=== PATIENT | male | born 1970 | race African-American/Black ===

== ENCOUNTER 2017-06-26 07:23 | Emergency (ER) | payer MEDICAID, MEDICARE ==
[2017-06-26] MEDS ORDERED: Ondansetron HCl/PF 4 MG/2 ML Vial ONE (07:37)
[2017-06-26] MEDS ORDERED: Morphine 4 MG/ML Carpuject ONE (07:37)
[2017-06-26 08:00] LABS: #Basophils 0.1 thou/uL (0.0-0.2); #Eosinphils 0.1 thou/uL (0.0-0.7); #Lymphocytes 3.2 thou/uL (1.20-3.40); #Monocytes 1.1 thou/uL (0.11-0.59); #Neutrophils 6.5 thou/uL (1.40-6.50); %Basophils 0.6 % (0.0-1.0); %Lymphocytes 29.1 % (21.0-51.0); %Monocytes 10.4 % (0.0-10.0); %Neutrophils 58.9 % (42.0-75.0); Hemoglobin 14.6 g/dL (14.0-18.0); Mean Corpuscular HGB CONC 32.3 g/dL (32.0-36.0); Mean Corpuscular Hemoglobin 28.8 pg (27.0-31.0); Mean Corpuscular Volume 89.2 fl (80.0-94.0); Mean Platelet Volume 6.9 fL (7.4-10.4); Platelet Count 404 thou/uL (130-400); RBC Distribution Width 12.7 % (11.5-14.5); Red Blood Cell (RBC) Count 5.06 mill/uL (4.70-6.10)
[2017-06-26 08:23] LABS: ALT (SGPT) 8 U/L (8-55); AST (SGOT) 10 U/L (5-34); Albumin 4.2 g/dL (3.5-5.0); Alkaline Phosphatase 61 U/L (40-150); Anion Gap 16 mmol/L (10-20); BUN (Urea Nitrogen) 11 mg/dL (8.9-20.6); Bilirubin, Total 0.4 mg/dL (0.2-1.2); Calc. Creatinine Clearance 0 mL/min (70-130); Carbon Dioxide 19 mmol/L (22-29); Chloride 106 mmol/L (98-107); Estimated GFR-MDRD Greater than 90; Globulin 3.5 g/dL (2.4-3.5); Glucose 108 mg/dL (70-105); Lipase 21 U/L (8-78); Potassium 4.1 mmol/L (3.5-5.1); Protein, Total 7.7 g/dL (6.0-8.3); Sodium 137 mmol/L (136-145)
--- NOTE | 2017-06-26 08:38 | CT ---
CT OF THE ABDOMEN AND PELVIS WITHOUT IV CONTRAST: INDICATION: Right-sided flank pain with stenting upon urination. COMPARISON: None. FINDINGS: There is mild right basilar atelectasis. Unopacified liver, pancreas, adrenal glands, and spleen appear within normal limits. No hydronephros is was evident. No definite renal or ureteral calculus is evident. There are mild vascular calcific ations involving the distal abdominal aorta and common iliac arteries. The prostate is mildly enlarg ed at 5 cm. Unopacified bladder is unremarkable. The visualized unopacified large bowel demonstrate a few scattered diverticula. There is a focal area of mild wall thickening and pericolonic inflamma tory stranding involving the descending colon on image 27 of series 2. There is a mild amount of ret ained stool within the colon. There is a normal appendix in the right lower quadrant of the abdomen. No definite acute osseous abnormality is evident. IMPRESSION: 1. Suggestion of some mild wall thickening and pericolonic inflammatory stranding involving a focal area of descending colon may reflect an area of diverticulitis. Recommend correlation with the clini carol exam. 2. No renal or ureteral calculus evident. 3. Moderate amount of retained stool within the colon. 4. Atherosclerotic calcification of the distal abdominal aorta and common iliac vasculature. POS: [facility]
[2017-06-26 08:42] LABS: Bilirubin Negative (Negative); Blood, Urine Negative (Negative); Clarity CLOUDY (Clear); Glucose, Urine (Dipstick) Negative (Negative); Leukocyte Moderate (Negative); Nitrite Negative (Negative); Protein, Urine (Dipstick) Negative (Neg-Trace); Specific Gravity, Urine 1.027 (1.002-1.036)
[2017-06-26 08:45] LABS: Bacteria/HPF None Seen HPF (None Seen); Hyaline Casts/LPF 4-6 HYALINE CAST LPF (0-3 Hyaline); RBC/HPF 0-3 HPF (0-3); WBC/HPF 21-50 HPF (0-3)
== END 2017-06-26 10:08 | disposition home or self-care (01) ==
LOC: ERS 07:23
DX: K57.92 Diverticulitis of intestine, part unspecified, without perforation or abscess without bleeding (principal); J45.909 Unspecified asthma, uncomplicated; F32.9 Major depressive disorder, single episode, unspecified; Z87.891 Personal history of nicotine dependence
CPT/HCPCS: 36415; 74176; 80053; 81003; 81015; 83690; 85025; 87086; 96374; 96375; J2270; J2405

== ENCOUNTER 2017-06-30 04:47 | Emergency (ER) | payer MEDICARE, OTHER ==
[2017-06-30 05:51] LABS: #Eosinphils 0.1 thou/uL (0.0-0.7); #Lymphocytes 3.7 thou/uL (1.20-3.40); #Neutrophils 4.2 thou/uL (1.40-6.50); %Basophils 0.5 % (0.0-1.0); %Lymphocytes 41.2 % (21.0-51.0); %Monocytes 10.6 % (0.0-10.0); %Neutrophils 46.7 % (42.0-75.0); Hemoglobin 13.2 g/dL (14.0-18.0); Mean Corpuscular HGB CONC 32.9 g/dL (32.0-36.0); Mean Corpuscular Volume 88.3 fl (80.0-94.0); Mean Platelet Volume 7.1 fL (7.4-10.4); Platelet Count 301 thou/uL (130-400); RBC Distribution Width 12.4 % (11.5-14.5); Red Blood Cell (RBC) Count 4.56 mill/uL (4.70-6.10)
[2017-06-30] MEDS ORDERED: Ketorolac Tromethamine 60 MG/2 ML VIAL ONE (06:02)
[2017-06-30 06:05] LABS: ALT (SGPT) 8 U/L (8-55); AST (SGOT) 9 U/L (5-34); Albumin 3.7 g/dL (3.5-5.0); Alkaline Phosphatase 51 U/L (40-150); Anion Gap 12 mmol/L (10-20); BUN (Urea Nitrogen) 11 mg/dL (8.9-20.6); Bilirubin, Total 0.4 mg/dL (0.2-1.2); Calc. Creatinine Clearance 0 mL/min (70-130); Calcium 9.6 mg/dL (7.8-10.44); Carbon Dioxide 23 mmol/L (22-29); Chloride 106 mmol/L (98-107); Estimated GFR-MDRD Greater than 90; Globulin 3.4 g/dL (2.4-3.5); Glucose 108 mg/dL (70-105); Potassium 3.8 mmol/L (3.5-5.1); Protein, Total 7.1 g/dL (6.0-8.3); Sodium 137 mmol/L (136-145)
--- NOTE | 2017-06-30 07:58 | RAD ---
RIGHT SHOULDER 3 VIEWS: HISTORY: Right shoulder pain. FINDINGS: There are postop changes of rotator cuff repair and distal clavicular resection. No acute fracture o r dislocation or bony destruction is seen. POS: [facility]
--- NOTE | 2017-07-05 13:47 | EKG ---
Test Reason : Blood Pressure : / mmHG Vent. Rate : 104 BPM Atrial Rate : 104 BPM P-R Int : 156 ms QRS Dur : 066 ms QT Int : 334 ms P-R-T Axes : 062 067 046 degrees QTc Int : 439 ms Sinus tachycardia Voltage criteria for left ventricular hypertrophy Cannot rule out Septal infarct , age undetermined Abnormal ECG Confirmed by NATACHA HYMAN ([id number]), brands editor CRISTINA MACKEY ([id number]) on 07/05/2017 1:46:56 PM Referred By: BOOGIE Confirmed By:NATACHA HYMAN
== END 2017-06-30 06:39 | disposition home or self-care (01) ==
LOC: ERS 04:47
DX: M25.511 Pain in right shoulder (principal); G89.18 Other acute postprocedural pain; J45.909 Unspecified asthma, uncomplicated; F32.9 Major depressive disorder, single episode, unspecified; F17.210 Nicotine dependence, cigarettes, uncomplicated
CPT/HCPCS: 36415; 80053; 83605; 85025; 85652; 86140; 93005; 96372; J1885

== ENCOUNTER 2017-08-16 12:21 | Emergency (ER) | payer MEDICARE ==
[2017-08-16] MEDS ORDERED: Lidocaine 1% w/Epinephrine 1:100K 20 ML VIAL ONE (12:50)
== END 2017-08-16 13:17 | disposition home or self-care (01) ==
LOC: ERS 12:21
DX: Z45.2 Encounter for adjustment and management of vascular access device (principal); J45.909 Unspecified asthma, uncomplicated; F32.9 Major depressive disorder, single episode, unspecified; F17.210 Nicotine dependence, cigarettes, uncomplicated
CPT/HCPCS: 87071; 99283; J2001

== ENCOUNTER 2017-09-12 09:56 | Emergency (ER) | payer MEDICARE ==
[2017-09-12 10:42] LABS: Bilirubin Negative (Negative); Blood, Urine Negative (Negative); Glucose, Urine (Dipstick) Negative (Negative); Leukocyte Negative (Negative); Nitrite Negative (Negative); Protein, Urine (Dipstick) Negative (Neg-Trace); Urobilinogen 0.2 mg/dL (0.2-1.0); pH, Urine 6.5 (5.0-9.0)
[2017-09-12 10:43] LABS: Clarity CLEAR (Clear)
[2017-09-14 00:50] LABS: Chlamydia by PCR Not Detected (NotDetected); GC by PCR Not Detected (NotDetected)
== END 2017-09-12 11:39 | disposition home or self-care (01) ==
LOC: ERS 09:56
DX: N48.1 Balanitis (principal); I10 Essential (primary) hypertension; J45.909 Unspecified asthma, uncomplicated; F32.9 Major depressive disorder, single episode, unspecified; F17.210 Nicotine dependence, cigarettes, uncomplicated
CPT/HCPCS: 81003; 87491; 87591; 99283

== ENCOUNTER 2017-10-02 07:30 | Emergency (ER) | payer MEDICARE, OTHER ==
[2017-10-02] MEDS ORDERED: Fentanyl 100 MCG/2 ML VIAL ONE (07:38)
[2017-10-02 08:15] LABS: #Lymphocytes 1.2 thou/uL (1.20-3.40); #Monocytes 0.7 thou/uL (0.11-0.59); #Neutrophils 6.5 thou/uL (1.40-6.50); %Basophils 0.3 % (0.0-1.0); %Eosinophils 0.3 % (0.0-10.0); %Lymphocytes 14.1 % (21.0-51.0); %Monocytes 8.1 % (0.0-10.0); %Neutrophils 77.2 % (42.0-75.0); Hemoglobin 14.2 g/dL (14.0-18.0); Mean Corpuscular Hemoglobin 29.1 pg (27.0-31.0); Mean Corpuscular Volume 88.1 fl (80.0-94.0); Mean Platelet Volume 7.7 fL (7.4-10.4); Platelet Count 187 thou/uL (130-400); Red Blood Cell (RBC) Count 4.89 mill/uL (4.70-6.10); White Blood Cell (WBC) Count 8.4 thou/uL (4.8-10.8)
--- NOTE | 2017-10-02 08:27 | RAD ---
RADIOGRAPH CHEST 1 VIEW: HISTORY: A 47-year-old male with sepsis and fever. FINDINGS: There are no air space densities, pulmonary edema, pneumothorax, or cardiomegaly. The lateral costop hrenic angles are sharp. IMPRESSION: No acute cardiopulmonary findings. jn [] POS: [facility]
[2017-10-02] MEDS ORDERED: Ketorolac Tromethamine 30 MG/ML VIAL ONE (08:28)
[2017-10-02 08:31] LABS: ALT (SGPT) 14 U/L (8-55); AST (SGOT) 18 U/L (5-34); Alkaline Phosphatase 61 U/L (40-150); Anion Gap 12 mmol/L (10-20); BUN (Urea Nitrogen) 8 mg/dL (8.9-20.6); Bilirubin, Total 0.5 mg/dL (0.2-1.2); CK (CPK) 137 U/L (30-200); Calc. Creatinine Clearance 0 mL/min (70-130); Calcium 9.5 mg/dL (7.8-10.44); Carbon Dioxide 22 mmol/L (22-29); Chloride 102 mmol/L (98-107); Estimated GFR-MDRD Greater than 90; Globulin 3.1 g/dL (2.4-3.5); Glucose 118 mg/dL (70-105); Potassium 3.4 mmol/L (3.5-5.1); Protein, Total 7.1 g/dL (6.0-8.3); Sodium 133 mmol/L (136-145)
[2017-10-02] MEDS ORDERED: Piperacillin/Tazobactam 4.5 GM VIAL ONE (09:46)
--- NOTE | 2017-10-02 10:29 | RAD ---
RIGHT SHOULDER 3 VIEWS: HISTORY: Sepsis and shoulder pain. FINDINGS: Multiple surgical anchors are seen which appear to be from a previous rotator cuff tear and possibly a tenodesis. There are arthritic changes of the glenohumeral joint space. No bony destructive morales e is seen. IMPRESSION: Postoperative changes of the shoulder. No definitive evidence for osteomyelitis. Some deformity to the greater tuberosity of the humerus is probably on the basis of postoperative change. Findings ganesh ear similar to a 06/30/17 study. POS: [facility]
[2017-10-02] MEDS ORDERED: Lidocaine 1% (PF) 30 ML VIAL ONE (10:35)
[2017-10-02 13:32] LABS: BF Color Yellow; Body Fluid Source SYNOVIAL FLUID; Clarity Hazy (Clear); Tube # EDTA
[2017-10-02 13:33] LABS: BF RBC Count - Manual 2100 /cumm; RBC Background Count 0.003; WBC/NonHematic-Auto 318 /cumm
[2017-10-02 14:10] LABS: BF Segmented Neutrophils 48 %; Cell Count Non Hematic 35 %; Lymphocytes 16 %
== END 2017-10-02 13:03 | disposition home or self-care (01) ==
LOC: ERS 07:30
DX: M25.511 Pain in right shoulder (principal); I10 Essential (primary) hypertension; J45.909 Unspecified asthma, uncomplicated; F32.9 Major depressive disorder, single episode, unspecified; F17.210 Nicotine dependence, cigarettes, uncomplicated; Z79.899 Other long term (current) drug therapy
CPT/HCPCS: 20610; 71045; 80053; 82550; 83605; 85025; 85060; 85652; 86140; 87040; 87070; 87205; 89051; 93005; 96361; 96365; 96367; 96375; J1885; J2001; J2543; J3010; J3370

== ENCOUNTER 2018-08-15 12:27 | Emergency (ER) | payer MEDICARE, OTHER ==
[2018-08-15] MEDS ORDERED: Bupivacaine 0.5% 10 ML VIAL ONE (12:47)
== END 2018-08-15 13:06 | disposition home or self-care (01) ==
LOC: SCSER 12:27
DX: K02.9 Dental caries, unspecified (principal); I10 Essential (primary) hypertension; F32.9 Major depressive disorder, single episode, unspecified; F17.210 Nicotine dependence, cigarettes, uncomplicated; Z79.899 Other long term (current) drug therapy
CPT/HCPCS: 64400; J3490

== ENCOUNTER 2019-03-30 10:59 | Emergency (ER) | payer MEDICARE, OTHER ==
[2019-03-30] MEDS ORDERED: Ketorolac Tromethamine 60 MG/2 ML VIAL ONE (11:41)
[2019-03-30] MEDS ORDERED: Dexamethasone 10 MG/ML VIAL ONE (11:41)
--- NOTE | 2019-03-30 11:44 | RAD ---
RIGHT SHOULDER THREE VIEWS: HISTORY: Right shoulder pain. COMPARISON: 10/02/2017 FINDINGS: Postop changes of rotator cuff repair are again seen. There is a new bony density in the acromiohumer al space which is likely due to avulsion from the trough of the right proximal humerus and highly mary picious for a rotator cuff tear. Further evaluation with MRI would be helpful. POS: [facility]
== END 2019-03-30 12:00 | disposition home or self-care (01) ==
LOC: ERS 10:59
DX: M25.511 Pain in right shoulder (principal); G89.29 Other chronic pain; I10 Essential (primary) hypertension; F32.9 Major depressive disorder, single episode, unspecified; F17.210 Nicotine dependence, cigarettes, uncomplicated; Z79.899 Other long term (current) drug therapy
CPT/HCPCS: 96372; J1100; J1885

== ENCOUNTER 2019-05-08 13:49 | Emergency (ER) | payer MEDICARE, OTHER ==
[2019-05-08] MEDS ORDERED: Ibuprofen 800 MG TAB ONE (14:03)
[2019-05-08] MEDS ORDERED: Acetaminophen 500 MG TAB ONE (14:03)
== END 2019-05-08 14:55 | disposition home or self-care (01) ==
LOC: ERS 13:49
DX: K04.7 Periapical abscess without sinus (principal); I10 Essential (primary) hypertension; E78.5 Hyperlipidemia, unspecified; F17.210 Nicotine dependence, cigarettes, uncomplicated; Z79.899 Other long term (current) drug therapy
CPT/HCPCS: 87804; 99283

== ENCOUNTER 2019-06-10 13:38 | Emergency (ER) | payer OTHER ==
[2019-06-10] MEDS ORDERED: Ketorolac Tromethamine 30 MG/ML VIAL ONE (14:34)
== END 2019-06-10 15:02 | disposition home or self-care (01) ==
LOC: ERS 13:38
DX: M54.5 Low back pain (principal); E78.5 Hyperlipidemia, unspecified; I10 Essential (primary) hypertension; F32.9 Major depressive disorder, single episode, unspecified; F17.210 Nicotine dependence, cigarettes, uncomplicated; Z79.899 Other long term (current) drug therapy
CPT/HCPCS: 96372; 99283; J1885

== ENCOUNTER 2019-07-08 12:16 | Emergency (ER) | payer OTHER ==
--- NOTE | 2019-07-08 13:30 | RAD ---
RIGHT SHOULDER THREE VIEWS: HISTORY: Right shoulder pain. COMPARISON: 03/30/2019 FINDINGS: Postop changes of rotator cuff repair are again seen. There is redemonstration of the bony density i n the acromiohumeral space which is likely due to avulsion from the trough of the right proximal humerus and highly suspicious for a rotator cuff tear. No acute fracture or dislocation is identified.
== END 2019-07-08 15:57 | disposition left against medical advice (07) ==
LOC: ERS 12:16
DX: Z53.21 Procedure and treatment not carried out due to patient leaving prior to being seen by health care provider (principal)

== ENCOUNTER 2019-10-02 12:34 | Emergency (ER) | payer MEDICARE, OTHER ==
[2019-10-02] MEDS ORDERED: Acetaminophen 500 MG TAB ONE (13:02)
[2019-10-02] MEDS ORDERED: Bupivacaine 0.25% 10 ML VIAL ONE (13:39)
[2019-10-02] MEDS ORDERED: traMADol HCl 50 MG TAB ONE (13:44)
== END 2019-10-02 14:00 | disposition home or self-care (01) ==
LOC: ERS 12:34
DX: K03.81 Cracked tooth (principal); K02.9 Dental caries, unspecified; F17.210 Nicotine dependence, cigarettes, uncomplicated
CPT/HCPCS: 64400; S0020

== ENCOUNTER 2019-11-07 13:46 | Emergency (ER) | payer MEDICARE, OTHER ==
[2019-11-08 14:04] LABS: SARS-CoV-2 MS2 Positive; SARS-CoV-2 N Gene Negative; SARS-CoV-2 S Gene Negative; SARS-CoV-2 orf1ab Negative
== END 2019-11-07 14:25 | disposition home or self-care (01) ==
LOC: ERS 13:46
DX: Z20.828 Contact with and (suspected) exposure to other viral communicable diseases (principal)
CPT/HCPCS: 99283; U0003; 87635

== ENCOUNTER 2020-02-24 03:11 | Inpatient (IN) | payer MEDICARE, OTHER ==
[2020-02-24] MEDS ORDERED: Ketorolac Tromethamine 30 MG/ML VIAL ONE (03:42)
[2020-02-24 03:52] LABS: #Eosinphils 0.1 thou/uL (0.0-0.7); #Lymphocytes 2.1 thou/uL (1.20-3.40); #Monocytes 1.1 thou/uL (0.11-0.59); %Basophils 0.1 % (0.0-1.0); %Eosinophils 0.3 % (0.0-10.0); %Lymphocytes 13.7 % (21.0-51.0); %Monocytes 7.2 % (0.0-10.0); %Neutrophils 78.6 % (42.0-75.0); Hemoglobin 15.1 g/dL (14.0-18.0); Mean Corpuscular HGB CONC 33.1 g/dL (32.0-36.0); Mean Corpuscular Hemoglobin 30.2 pg (27.0-31.0); Mean Corpuscular Volume 91.2 fL (78.0-98.0); Mean Platelet Volume 10.3 fL (7.4-10.4); Platelet Count 201 thou/uL (130-400); White Blood Cell (WBC) Count 15.3 thou/uL (4.8-10.8)
[2020-02-24 04:14] LABS: ALT (SGPT) 14 U/L (8-55); AST (SGOT) 18 U/L (5-34); Alkaline Phosphatase 73 U/L (40-110); Anion Gap 17 mmol/L (10-20); BUN (Urea Nitrogen) 12 mg/dL (8.9-20.6); Bilirubin, Total 0.2 mg/dL (0.2-1.2); Calc. Creatinine Clearance 0 mL/min (70-130); Calcium 9.3 mg/dL (7.8-10.44); Carbon Dioxide 17 mmol/L (22-29); Chloride 104 mmol/L (98-107); Estimated GFR-MDRD Greater than 90; Globulin 3.5 g/dL (2.4-3.5); Glucose 106 mg/dL (70-105); Protein, Total 7.5 g/dL (6.0-8.3); Sodium 134 mmol/L (136-145)
[2020-02-24] MEDS ORDERED: Cefepime 2 GM VIAL ONE (04:23)
[2020-02-24] MEDS ORDERED: Vancomycin 1 GM/200 ML BAG ONE (04:24)
[2020-02-24] MEDS ORDERED: Acetaminophen 500 MG TAB ONE (06:08)
[2020-02-24 06:54] LABS: Lactic Acid 0.9 mmol/L (0.5-2.2)
[2020-02-24] MEDS ORDERED: hydrALAZINE 20 MG/ML VIAL SLOW IVP PRN (06:55)
[2020-02-24] MEDS ORDERED: Labetalol HCl 100 MG/20 ML VIAL SLOW IVP PRN (06:55)
[2020-02-24] MEDS ORDERED: Acetaminophen 325 MG TAB PO PRN (06:55)
[2020-02-24] MEDS ORDERED: Morphine 2 MG/ML VIAL SLOW IVP PRN (06:55)
[2020-02-24] MEDS ORDERED: Promethazine HCl 12.5 MG in Sodium Chloride 0.9% 50 ML IVPB PRN (06:55)
[2020-02-24] MEDS ORDERED: HYDROcodone/Acetaminophen 5/325 mg Tablet PO PRN (06:55)
[2020-02-24] MEDS ORDERED: cloNIDine 0.1 MG TAB PO PRN (06:55)
[2020-02-24] MEDS ORDERED: Ondansetron PF 4 MG/2 ML Vial IVP PRN (06:55)
--- NOTE | 2020-02-24 06:59 | PDOC.HHP ---
Hospitalist HPI - History of Present Illness Fever, shoulder pain, jaw pain History of Present Illness: Patient is a 49 year old male with PMH HTN, asthma, shoulder surgeries who presents to ED for R shoulder pain, tooth pain, fever. He reports friday he developed pain in R lower mandible and some pus, he also developed R shoulder pain at that time, reports he has chronic shoulder pain and hisotry of surgeries on R shoulder by Dr Colon. In ED, WBC 15, CRP 13, ESR 55. Exam concerning for R shoulder tenderness and very painful. tachycardia, tachypneic, febrile in ED as well, patinet given sepsis protocol, cultures drawn, given cefepime and vancomycin and admitted for further workup. Hospitalist ROS - Review of Systems Constitutional: reports: fever, chills. denies: sweats, weakness, malaise, other Eyes: denies: pain, vision change, conjunctivae inflammation, eyelid inflammation, redness, other ENT: reports: other (tooth pain). denies: ear pain, ear discharge, nose pain, nose discharge, nose congestion, mouth pain, mouth swelling, throat pain, throat swelling Respiratory: denies: cough, dry, shortness of breath, hemoptysis, SOB with excertion, pleuritic pain, sputum, wheezing, other Cardiovascular: denies: chest pain, palpitations, orthopnea, paroxysmal noc. dyspnea, edema, light headedness, other Gastrointestinal: denies: nausea, vomiting, abdominal pain, diarrhea, constipation, melena, hematochezia, other Genitourinary: denies: dysuria, frequency, incontinence, hematuria, retention, other Musculoskeletal: reports: shoulder pain. denies: neck pain, arm pain, back pain, hand pain, leg pain, foot pain, other Skin: denies: rash, lesions, hina, bruising, other Neurological: denies: weakness, numbness, incoordination, change in speech, confusion, seizures, other All other systems reviewed; all pertinent +/- noted in HPI/Subj Hospitalist History - Past Medical History Other Medical History: asthma htn - Past Surgical History Other Surgical History: shoulder surgeries - Family History Family History: reports: no pertinent history - Exam General Appearance: NAD, awake alert Eye: PERRL, anicteric sclera ENT: normocephalic atraumatic, no oropharyngeal lesions, moist mucosa ENT - other findings: r jaw tenderness Neck: supple, symmetric, no JVD, no thyromegaly, no lymphadenopathy, no carotid bruit Heart: RRR, no murmur, no gallops, no rubs, normal peripheral pulses Heart - other findings: tachycardia Respiratory: CTAB, no wheezes, no rales, no ronchi, normal chest expansion, no tachypnea, normal percussion Gastrointestinal: soft, non-tender, non-distended, normal bowel sounds, no palpable masses, no hepatomegaly, no splenomegaly, no bruit Extremities: no cyanosis, no clubbing, no edema Extremities - other findings: R shoulder tenderness Skin: normal turgor, no lesions, no rashes Neurological: cranial nerve grossly intact, normal sensation to touch, no weakness, no focal deficits, no new deficit Musculoskeletal: normal tone, normal strength, no muscle wasting Musculoskeletal - other findings: R shoulder tenderness, ROM limited by pain Psychiatric: normal affect, normal behavior, A&O x 3 Hospitalist Results - Labs Result Diagrams: 02/24/20 03:40 02/24/20 03:40 Lab results: WBC 15.3 thou/uL (4.8-10.8) H 02/24/20 03:40 Hgb 15.1 g/dL (14.0-18.0) 02/24/20 03:40 Hct 45.5 % (42.0-52.0) 02/24/20 03:40 MCV 91.2 fL (78.0-98.0) 02/24/20 03:40 Plt Count 201 thou/uL (130-400) 02/24/20 03:40 Neutrophils % 78.6 % (42.0-75.0) H 02/24/20 03:40 ESR Westergren 55 mm/hr (Less than 20) 02/24/20 03:33 Sodium 134 mmol/L (136-145) L 02/24/20 03:40 Potassium 4.0 mmol/L (3.5-5.1) 02/24/20 03:40 Chloride 104 mmol/L (98-107) 02/24/20 03:40 Carbon Dioxide 17 mmol/L (22-29) L 02/24/20 03:40 BUN 12 mg/dL (8.9-20.6) 02/24/20 03:40 Creatinine 0.99 mg/dL (0.7-1.3) 02/24/20 03:40 Glucose 106 mg/dL (70-105) H 02/24/20 03:40 Lactic Acid 0.9 mmol/L (0.5-2.2) 02/24/20 06:29 Calcium 9.3 mg/dL (7.8-10.44) 02/24/20 03:40 Total Bilirubin 0.2 mg/dL (0.2-1.2) 02/24/20 03:40 AST 18 U/L (5-34) 02/24/20 03:40 ALT 14 U/L (8-55) 02/24/20 03:40 Alkaline Phosphatase 73 U/L (40-110) 02/24/20 03:40 C-Reactive Protein 12.98 mg/dL (= or < 0.5) H 02/24/20 03:40 Serum Total Protein 7.5 g/dL (6.0-8.3) 02/24/20 03:40 Albumin 4.0 g/dL (3.5-5.0) 02/24/20 03:40 Additional comment: VITAL SIGNS Kayleigh Feb 24, 2020 06:42 OSMANI Glass, Nasreen BP: 128/71 Pulse: 76 Resp: 16 Temp: 98.1 (Oral) Pain: 7 O2 sat: 97 on (Room Air) Time: 02/24/2020 06:42. ED documents, labs, imaging reports reviewed Hospitalist H&P A/P - Plan Plan: Patient is a 49 year old male with PMH HTN, asthma, shoulder surgeries who pr esents to ED for R shoulder pain, tooth pain, fever. # shoulder pain # sepsis # tooth pain He reports friday he developed pain in R lower mandible and some pus, he also developed R shoulder pain at that time, reports he has chronic shoulder pain and hisotry of surgeries on R shoulder by Dr Colon. In ED, WBC 15, CRP 13, ESR 55. Exam concerning for R shoulder tenderness and very painful. tachycardia, tachypneic, febrile in ED as well, patinet given sepsis protocol, cultures drawn, given cefepime and vancomycin and admitted for further workup. - admit to floor - follow cultures - consult Dr Colon for eval of shoulder - dentist after d/c for hygeine - vancomycin/zosyn # HTN - PRN medications # asthma - PRN nebs, no wheezing # DVT/gI ppx full code
[2020-02-24] MEDS ORDERED: Electrolyte Replacement Protoc 1 EACH EACH FS SCH (07:00)
[2020-02-24] MEDS ORDERED: Sodium Chloride 0.9% 1,000 ML IV SCH (07:00)
[2020-02-24 07:05] LABS: SARS-CoV-2 NAA Rapid Test Not Detected (NotDetected)
--- NOTE | 2020-02-24 07:54 | RAD ---
EXAM: Single view of the chest HISTORY: Dry cough and fever COMPARISON: 10/02/2017 FINDINGS: Single view of the chest shows a normal sized cardiomediastinal silhouette. There is no dominic dence of consolidation, mass, or pleural effusion. No acute osseous abnormality. IMPRESSION: No evidence of acute cardiopulmonary disease
[2020-02-24] MEDS ORDERED: Polyethylene Glycol 3350 17 GM Packet PO SCH (09:00)
[2020-02-24] MEDS ORDERED: Famotidine 20 MG TAB PO SCH (09:00)
[2020-02-24] MEDS ORDERED: Ibuprofen 200 MG TAB PO SCH (09:15)
--- NOTE | 2020-02-24 09:48 | RAD ---
Exam:Right shoulder 3 views HISTORY: Pain. Evaluate for septic arthritis. COMPARISON: 07/08/2019 FINDINGS: Postoperative changes compatible with right rotator cuff repair. No radiographic evidence o f joint distention. No fracture, cortical irregularity or periosteal reaction. Stable truncation of the distal clavicle. IMPRESSION: No radiographic abnormalities. Additional imaging as warranted.
--- NOTE | 2020-02-24 11:44 | PDOC.HOSPP ---
- Subjective Encounter Date: 02/24/20 Encounter Time: 11:00 Subjective: c/o right shoulder pain has chronic pain from years but its gotten worse per patient no cough or chest pain or palp no abd pain, diarrhea or nausea - Objective Vital Signs & Weight: Vital Signs (12 hours) Temp Pulse Resp Pulse Ox 02/24/20 07:55 97.3 F L 74 16 97 Result Diagrams: 02/24/20 03:40 02/24/20 03:40 Hospitalist ROS - Medication Medications: Active Medications Generic Name Dose Route Start Last Admin Trade Name Freq PRN Reason Stop Dose Admin Hydrocodone Bitart/Acetaminophen 1 tab 02/24/20 06:55 02/24/20 09:57 Hydrocodone/Acetaminophen 5/325 Mg Tablet PO 1 tab Q4H PRN Administration Moderate Pain (4-6) Famotidine 20 mg 02/24/20 09:00 02/24/20 09:52 Famotidine 20 Mg Tab PO 20 mg BID MARC Administration Sodium Chloride 1,000 mls @ 100 mls/hr 02/24/20 07:00 02/24/20 09:53 Normal Saline 0.9% IV 1,000 mls .Q10H MARC Administration Ibuprofen 400 mg 02/24/20 09:15 02/24/20 09:52 Ibuprofen 200 Mg Tab PO 02/24/20 12:00 Not Given NOW MARC Polyethylene Glycol 17 gm 02/24/20 09:00 02/24/20 09:52 Polyethylene Glycol 3350 17 Gm Packet PO 17 gm DAILY MARC Administration - Exam General Appearance: awake alert Eye: PERRL, anicteric sclera ENT: no oropharyngeal lesions, moist mucosa Neck: supple, no JVD Heart: RRR, no murmur Respiratory: no wheezes, no rales Gastrointestinal: soft, non-tender, non-distended, normal bowel sounds Extremities: no cyanosis, no edema Neurological: cranial nerve grossly intact, no focal deficits Psychiatric: normal affect, A&O x 3 Hosp A/P (1) Sepsis Code(s): A41.9 - SEPSIS, UNSPECIFIED ORGANISM Status: Acute Qualifiers: Sepsis type: sepsis due to unspecified organism Sepsis acute organ dysfunction status: without acute organ dysfunction Qualified Code(s): A41.9 - Sepsis, unspecified organism (2) Right shoulder pain Code(s): M25.511 - PAIN IN RIGHT SHOULDER Status: Acute (3) HTN (hypertension) Code(s): I10 - ESSENTIAL (PRIMARY) HYPERTENSION Status: Chronic Qualifiers: Hypertension type: essential hypertension Qualified Code(s): I10 - Essential (primary) hypertension (4) Caries involving multiple surfaces of tooth Code(s): K02.9 - DENTAL CARIES, UNSPECIFIED Status: Chronic - Plan is on zosyn, will add vanc is npo until ortho eval for right shoulder pain tmax of 101 in ER await cultures has chronic dental caries with loss of multiple tooth (outpt dental appt) hemostable covid 19 -ve
[2020-02-24] MEDS ORDERED: Piperacillin/Tazobactam 3.375 GM in Sodium Chloride 0.9% 100 ML IVPB SCH (12:00)
[2020-02-24 12:41] VITALS: BP 123/75; TEMP 97.8
[2020-02-24 13:12] VITALS: BMI 24.0
[2020-02-24] MEDS ORDERED: Vancomycin HCl 1.25 GM in Sodium Chloride 0.9% 250 ML 250 ML IVPB SCH (14:00)
--- NOTE | 2020-02-24 19:17 | CON ---
DATE OF CONSULTATION: CHIEF COMPLAINT: Tooth and shoulder pain. HISTORY OF PRESENT ILLNESS: Mr. Magana is a 49-year-old male who has been a patient of Dr. Zaid Colon. He has a long history regarding his right shoulder. He reports he has had 6 surgeries on the shoulder. These have been multiple rotator cuff surgeries as well as a distal clavicle excision. He has had infection in the shoulder at least twice, maybe more. He had a course of 45 days of intravenous antibiotics he reports. He is not on antibiotics currently prior to this admission. He is no longer seeing Dr. Colon. He reports over the last 3 months, his shoulder has had worsening pain. He really came into the hospital for jaw and tooth pain, however, this time. He did have some tachycardia and was febrile in the emergency department. The patient has been started on cefepime and vancomycin. PAST SURGICAL HISTORY: Six previous right shoulder surgeries as per HPI. PAST MEDICAL HISTORY: Asthma and hypertension. ALLERGIES: NO KNOWN DRUG ALLERGIES. REVIEW OF SYSTEMS: Positive for jaw and shoulder pain as per HPI. Otherwise, negative review of systems. FAMILY MEDICAL HISTORY: Noncontributory. LABORATORY STUDIES: White blood cell count is 15.3. ESR is 55. CRP is 12.98. IMAGING STUDIES: X-rays of the right shoulder demonstrate multiple metallic rotator cuff anchors in the proximal humerus. The humerus is high-riding and there is osteoarthritis. There are changes consistent with rotator cuff arthropathy. There has been excision of the distal clavicle. PHYSICAL EXAMINATION: VITAL SIGNS: Temperature is 97.3, pulse is 74, respiratory rate is 16, and oxygen saturation 97%. GENERAL: He is alert, lying supine, talkative, no apparent distress. Breathing comfortably. HEENT: Normocephalic. However, he does open his mouth and reveal necrotic appearance to his upper right teeth. EXTREMITIES: The shoulder has well-healed scars. There are no open wounds. No drainage actively. He has pain with elevation, but he is able to passively move the shoulder to 90 degrees. There is no palpable increased warmth or effusion. IMPRESSION: History of multiple shoulder surgeries including history of infection, now with fever and tachycardia as well as a tooth abscess with tooth decay. PLAN: At this point, I think it is most likely the patient's infection is coming from his tooth. This seems to be the acute change which preempted his fevers. His shoulder has been chronically worsening for many months. I think this is related to his chronic condition. We will keep following the shoulder adducted, re-evaluate tomorrow morning, hopefully he improves. I would not plan for surgical intervention for now. He could follow up with Dr. Nirmal Stinson, who can discuss with him shoulder arthroplasty in the future. Job ID: [id number]
[2020-02-24] MEDS ORDERED: Vancomycin 1 GM in Premix Bag 1 BAG IVPB SCH (21:00)
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
== END 2020-02-24 14:05 | disposition left against medical advice (07) | DRG 872 ==
LOC: ERS 03:11 → T4-B 05:17
PROVIDERS: ADMIT Internal Medicine; ATTEND Internal Medicine
DX: A41.9 Sepsis, unspecified organism (principal); Z20.828 Contact with and (suspected) exposure to other viral communicable diseases; M25.511 Pain in right shoulder; I10 Essential (primary) hypertension; K02.9 Dental caries, unspecified; J45.909 Unspecified asthma, uncomplicated
CPT/HCPCS: 36415; 71045; 80053; 83605; 85025; 85652; 86140; 87040; 93005; 96361; 96365; 96366; 96375; J0692; J1885; J2543; J3370; J3490; U0002

== ENCOUNTER 2020-02-25 05:34 | Emergency (ER) | payer MEDICARE, OTHER ==
[2020-02-25 06:16] LABS: #Basophils 0.1 thou/uL (0.0-0.2); #Eosinphils 0.1 thou/uL (0.0-0.7); #Lymphocytes 1.6 thou/uL (1.20-3.40); #Monocytes 0.9 thou/uL (0.11-0.59); #Neutrophils 4.2 thou/uL (1.40-6.50); %Basophils 0.7 % (0.0-1.0); %Lymphocytes 22.8 % (21.0-51.0); %Monocytes 13.9 % (0.0-10.0); %Neutrophils 61.5 % (42.0-75.0); Hemoglobin 13.9 g/dL (14.0-18.0); Mean Corpuscular HGB CONC 32.2 g/dL (32.0-36.0); Mean Corpuscular Hemoglobin 29.5 pg (27.0-31.0); Mean Corpuscular Volume 91.4 fL (78.0-98.0); Platelet Count 208 thou/uL (130-400); Red Blood Cell (RBC) Count 4.72 mill/uL (4.70-6.10); White Blood Cell (WBC) Count 6.8 thou/uL (4.8-10.8)
== END 2020-02-25 07:13 | disposition home or self-care (01) ==
LOC: ERS 05:34
DX: G89.29 Other chronic pain (principal); M25.511 Pain in right shoulder; R50.9 Fever, unspecified; K02.9 Dental caries, unspecified; I10 Essential (primary) hypertension; J45.909 Unspecified asthma, uncomplicated; F17.210 Nicotine dependence, cigarettes, uncomplicated
CPT/HCPCS: 85025; 85652; 86140; 99283

== ENCOUNTER 2020-06-27 10:45 | Emergency (ER) | payer MEDICARE, OTHER ==
[2020-06-27 18:02] LABS: SARS-CoV-2 PCR by NAA Not Detected (NotDetected)
== END 2020-06-27 11:06 | disposition home or self-care (01) ==
LOC: ERS 10:45
DX: R43.9 Unspecified disturbances of smell and taste (principal); R50.9 Fever, unspecified; R61 Generalized hyperhidrosis; Z20.822 Contact with and (suspected) exposure to COVID-19; I10 Essential (primary) hypertension; J45.909 Unspecified asthma, uncomplicated; F17.210 Nicotine dependence, cigarettes, uncomplicated
CPT/HCPCS: 99283; U0003; U0005; 87635

== ENCOUNTER 2022-03-15 12:44 | Emergency (ER) | payer MEDICARE, OTHER ==
[2022-03-15] MEDS ORDERED: Ketorolac Tromethamine 30 MG/ML VIAL ONE (14:35)
[2022-03-15] MEDS ORDERED: Dexameth. Sod Phosp. 10 MG/ML (CHEMO USE ONLY) ONE (14:36)
== END 2022-03-15 14:58 | disposition home or self-care (01) ==
LOC: ERS 12:44
DX: M79.671 Pain in right foot (principal); E78.5 Hyperlipidemia, unspecified; I10 Essential (primary) hypertension; J45.909 Unspecified asthma, uncomplicated; F17.210 Nicotine dependence, cigarettes, uncomplicated
CPT/HCPCS: 96372; J1100; J1885

== ENCOUNTER 2022-05-09 08:28 | Emergency (ER) | payer OTHER ==
[2022-05-09] MEDS ORDERED: Ketorolac Tromethamine 30 MG/ML VIAL ONE (09:07)
[2022-05-09] MEDS ORDERED: Acetaminophen 325 MG TAB ONE (09:14)
[2022-05-09] MEDS ORDERED: Cyclobenzaprine 10 MG TAB ONE (09:14)
== END 2022-05-09 10:39 | disposition home or self-care (01) ==
LOC: ERS 08:28
DX: M54.50 Low back pain, unspecified (principal); G89.29 Other chronic pain; E78.5 Hyperlipidemia, unspecified; J45.909 Unspecified asthma, uncomplicated; F17.210 Nicotine dependence, cigarettes, uncomplicated; I10 Essential (primary) hypertension
CPT/HCPCS: 96372; 99283; J1885

== ENCOUNTER 2022-05-12 12:47 | Emergency (ER) | payer OTHER ==
[~2022-05-12 12:47] MED LIST: Iopamidol-370 76% 500 ML 1 ML ONE
[2022-05-12] MEDS ORDERED: Morphine 4 MG/ML VIAL ONE ×2 (13:23→17:44)
[2022-05-12] MEDS ORDERED: Diazepam 10 MG/2 ML SYRINGE ONE (13:23)
[2022-05-12 13:34] LABS: #Eosinphils 0.1 thou/uL (0.0-0.7); #Monocytes 0.5 thou/uL (0.11-0.59); #Neutrophils 3.2 thou/uL (1.40-6.50); %Basophils 0.6 % (0.0-1.0); %Eosinophils 0.9 % (0.0-10.0); %Lymphocytes 34.2 % (21.0-51.0); %Monocytes 8.7 % (0.0-10.0); %Neutrophils 55.6 % (42.0-75.0); Hemoglobin 13.5 g/dL (14.0-18.0); Mean Corpuscular HGB CONC 32.1 g/dL (32.0-36.0); Mean Corpuscular Volume 93.6 fl (78.0-98.0); Mean Platelet Volume 7.6 fL (7.4-10.4); Platelet Count 263 10x3/uL (130-400); RBC Distribution Width 12.8 % (11.5-14.5); Red Blood Cell (RBC) Count 4.48 mill/uL (4.70-6.10); White Blood Cell (WBC) Count 5.8 10x3/uL (4.8-10.8)
[2022-05-12 13:46] LABS: ALT (SGPT) 10 U/L (8-55); AST (SGOT) 16 U/L (5-34); Albumin 3.7 g/dL (3.5-5.0); Alkaline Phosphatase 54 U/L (40-110); Anion Gap 11 mmol/L (10-20); BUN (Urea Nitrogen) 11 mg/dL (8.4-25.7); Bilirubin, Total 0.3 mg/dL (0.2-1.2); Calc. Creatinine Clearance 0 mL/min (70-130); Calcium 9.1 mg/dL (7.8-10.44); Carbon Dioxide 21 mmol/L (22-29); Chloride 108 mmol/L (98-107); Estimated GFR 106; Globulin 2.6 g/dL (2.4-3.5); Glucose 87 mg/dL (70-105); Potassium 4.1 mmol/L (3.5-5.1); Protein, Total 6.3 g/dL (6.0-8.3); Sodium 136 mmol/L (136-145)
[2022-05-12] MEDS ORDERED: Dexamethasone 10 MG/ML VIAL ONE (16:20)
== END 2022-05-12 17:44 | disposition home or self-care (01) ==
LOC: ERS 12:47
DX: M54.50 Low back pain, unspecified (principal); E78.5 Hyperlipidemia, unspecified; I10 Essential (primary) hypertension; F17.210 Nicotine dependence, cigarettes, uncomplicated
CPT/HCPCS: 36415; 72100; 72132; 80053; 85025; 96372; 96374; 96375; J1100; J2270; J3360

== ENCOUNTER 2022-05-26 03:28 | Observation (INO) | payer OTHER ==
[2022-05-26] MEDS ORDERED: Orphenadrine Citrate 60 MG/2 ML VIAL ONE (03:55)
[2022-05-26] MEDS ORDERED: Diazepam 10 MG/2 ML SYRINGE ONE (03:55)
[2022-05-26] MEDS ORDERED: Ketorolac Tromethamine 30 MG/ML VIAL ONE (04:25)
[2022-05-26 04:35] LABS: #Eosinphils 0.1 thou/uL (0.0-0.7); #Lymphocytes 2.9 thou/uL (1.20-3.40); #Monocytes 0.6 thou/uL (0.11-0.59); %Basophils 0.7 % (0.0-1.0); %Lymphocytes 43.5 % (21.0-51.0); %Monocytes 8.3 % (0.0-10.0); %Neutrophils 45.6 % (42.0-75.0); Hemoglobin 13.4 g/dL (14.0-18.0); Mean Corpuscular HGB CONC 34.7 g/dL (32.0-36.0); Mean Corpuscular Hemoglobin 32.4 pg (27.0-31.0); Mean Corpuscular Volume 93.3 fl (78.0-98.0); Mean Platelet Volume 7.7 fL (7.4-10.4); Platelet Count 189 10x3/uL (130-400); RBC Distribution Width 12.7 % (11.5-14.5); Red Blood Cell (RBC) Count 4.13 mill/uL (4.70-6.10); White Blood Cell (WBC) Count 6.6 10x3/uL (4.8-10.8)
[2022-05-26 04:54] LABS: ALT (SGPT) 10 U/L (8-55); AST (SGOT) 15 U/L (5-34); Albumin 3.9 g/dL (3.5-5.0); Alkaline Phosphatase 56 U/L (40-110); Anion Gap 15 mmol/L (10-20); BUN (Urea Nitrogen) 11 mg/dL (8.4-25.7); Bilirubin, Total 0.2 mg/dL (0.2-1.2); Calc. Creatinine Clearance 0 mL/min (70-130); Calcium 8.8 mg/dL (7.8-10.44); Carbon Dioxide 21 mmol/L (22-29); Chloride 109 mmol/L (98-107); Estimated GFR 101; Globulin 2.5 g/dL (2.4-3.5); Glucose 102 mg/dL (70-105); Potassium 3.9 mmol/L (3.5-5.1); Protein, Total 6.4 g/dL (6.0-8.3); Sodium 141 mmol/L (136-145)
[2022-05-26] MEDS ORDERED: Morphine 4 MG/ML VIAL ONE (06:14)
[2022-05-26 06:35] VITALS: BMI 23.0
[2022-05-26] MEDS ORDERED: Ondansetron PF 4 MG/2 ML Vial IVP PRN (09:03)
[2022-05-26] MEDS ORDERED: Acetaminophen 325 MG TAB PO PRN (09:03)
[2022-05-26] MEDS ORDERED: Ondansetron ODT 4 MG TAB PO PRN (09:03)
[2022-05-26] MEDS ORDERED: Magnevist 469MG/ML 20 ML VIAL ONE (12:04)
[2022-05-26] MEDS ORDERED: Ketorolac Tromethamine 30 MG/ML VIAL IVP PRN (12:14)
[2022-05-26] MEDS ORDERED: Lidocaine 5% Patch TD SCH (13:00)
[2022-05-26] MEDS ORDERED: Gabapentin 100 MG CAP PO SCH (15:00)
[2022-05-26 15:54] VITALS: BP 113/65; TEMP 98
[2022-05-27] MEDS ORDERED: Transdermal Patch Removal TOP SCH (01:00)
== END 2022-05-26 16:50 | disposition home or self-care (01) ==
LOC: ERS 03:28 → SURG A 06:28
PROVIDERS: ADMIT Internal Medicine; ATTEND Nurse Practitioner Family
DX: G89.29 Other chronic pain (principal); M54.50 Low back pain, unspecified; R53.1 Weakness; M51.36 Other intervertebral disc degeneration, lumbar region; J45.909 Unspecified asthma, uncomplicated; F17.210 Nicotine dependence, cigarettes, uncomplicated; M47.815 Spondylosis without myelopathy or radiculopathy, thoracolumbar region; M48.05 Spinal stenosis, thoracolumbar region; M47.816 Spondylosis without myelopathy or radiculopathy, lumbar region; M48.061 Spinal stenosis, lumbar region without neurogenic claudication
CPT/HCPCS: 36415; 72158; 80053; 85025; 85652; 86140; 96372; 96374; 96375; A9579; G0378; J1885; J2270; J2360; J3360

== ENCOUNTER 2022-06-03 12:10 | Emergency (ER) | payer OTHER | END 2022-06-03 13:38 | disposition left against medical advice (07) | LOC: ERS 12:10 | DX: Z53.21 Procedure and treatment not carried out due to patient leaving prior to being seen by health care provider (principal) ==

== ENCOUNTER 2023-01-29 01:15 | Emergency (ER) | payer OTHER ==
[2023-01-29] MEDS ORDERED: Boostrix 0.5 ML (Tdap) VIAL (>/=7 yrs of age) ONE (02:18)
== END 2023-01-29 02:22 | disposition home or self-care (01) ==
LOC: ERS 01:15
DX: S01.93XA Puncture wound without foreign body of unspecified part of head, initial encounter (principal); E78.00 Pure hypercholesterolemia, unspecified; I10 Essential (primary) hypertension; F17.210 Nicotine dependence, cigarettes, uncomplicated; W50.0XXA Accidental hit or strike by another person, initial encounter
CPT/HCPCS: 90471; 90715

== ENCOUNTER 2023-05-08 12:48 | Emergency (ER) | payer OTHER, MEDICAID ==
[2023-05-08] MEDS ORDERED: HYDROcodone/Acetaminophen 5/325 mg Tablet ONE (13:43)
[2023-05-08] MEDS ORDERED: Ketorolac Tromethamine 30 MG/ML VIAL ONE (13:43)
== END 2023-05-08 13:50 | disposition home or self-care (01) ==
LOC: ERS 12:48
DX: S39.012A Strain of muscle, fascia and tendon of lower back, initial encounter (principal); I10 Essential (primary) hypertension; J45.909 Unspecified asthma, uncomplicated; F17.210 Nicotine dependence, cigarettes, uncomplicated; W22.10XA Striking against or struck by unspecified automobile airbag, initial encounter; Z79.899 Other long term (current) drug therapy
CPT/HCPCS: 71045; 72131; 96372; J1885